=== PATIENT | male | born 1970 | race African-American/Black ===

== ENCOUNTER 2019-11-05 13:35 | Inpatient (IN) | payer OTHER ==
[2019-11-05 17:06] VITALS: BMI 27.1
--- NOTE | 2019-11-05 17:48 | HP ---
COWS - Scale Resting Pulse: 0= [place] 80 or Below Sweatin=Flushed/Facial Moisture Restless Observation: 1= Difficult to Sit Still Pupil Size: 1= Pupils >than Normal Bone or Joint Aches: 4=Acute Joint/Muscle Pain Runny Nose/ Eye Tearin= Runny Nose/Eyes GI Upset > 30mins: 3= Vomiting/Diarrhea (vomiting x 2, no diarrhea) Tremor Observation: 2= Slight Tremor Visible Yawning Observation: 1= 1-2x During Session Anxiety or Irritability: 2=Irritable/Anxious Goose Flesh Skin: 3=Piloerection COWS Score: 21 CIWA Score - Admission Criteria [facility]ASAS Guidelines: Admission for Medically Managed Detox: Requires at least one of the followin. CIWA greater than 12 2. Seizures within the past 24 hours 3. Delirium tremens within the past 24 hours 4. Hallucinations within the past 24 hours 5. Acute intervention needed for co occurring medical disorder 6. Acute intervention needed for co occurring psychiatric disorder 7. Severe withdrawal that cannot be handled at a lower level of care (continued vomiting, continued diarrhea, abnormal vital signs) requiring intravenous medication and/or fluids 8. Admitting History and Physical - Smoking History Smoking history: Current every day smoker Have you smoked in the past 12 months: Yes Aproximately how many cigarettes per day: 20 - Alcohol/Substance Use Hx Alcohol Use: No Admission [facility] Chief Complaint: Heroin withdrawal symptoms Allergies/Adverse Reactions: Allergies Allergy/AdvReac Type Severity Reaction Status Date / Time No Known Allergies Allergy Verified 11/05/19 16:57 History of Present Illness: 49 years old male with 33 years of heroin dependence is seeking admission to detox. Patient reports that his last detox was at [facility]. He denies any medical history, psych. history and suicidal ideation at this time. He denies blackouts and overdose. Data Detail Level: Printer-Friendly View Confidential Drug Utilization Report Search Terms: amrita pastrana, 1970 Search Date: 11/05/2019 05:47:18 PM The Drug Utilization Report below displays all of the controlled substance prescriptions, if any, that your patient has filled in the last twelve months. The information displayed on this report is compiled from pharmacy submissions to the Department, and accurately reflects the information as submitted by the pharmacies. There are no results for the search terms that you entered. 2017 [facility] Department of Health - [place] of Narcotic Enforcement 11/05/2019 17:47:18 . Exam Limitations: Other (active withdrawal) - Ebola screening Have you traveled outside of the country in the last 21 days: No Have you had contact with anyone from an Ebola affected area: No Do you have a fever: No - Review of Systems Constitutional: Chills, Malaise, Night Sweats, Changes in sleep EENT: reports: Nose Congestion Respiratory: reports: No Symptoms reported Cardiac: reports: No Symptoms Reported GI: reports: Nausea, Poor Appetite, Poor Fluid Intake, Vomiting, Abdominal cramping Musculoskeletal: reports: Back Pain, Joint Pain, Neck Pain Integumentary: reports: Dryness, Flushing Neuro: reports: Tremors Hematology: reports: No Symptoms Reported Psychiatric: reports: Anxious Other Systems: Reviewed and Negative Patient History - Patient Medical History Hx Anemia: No Hx Asthma: No Hx Chronic Obstructive Pulmonary Disease (COPD): No Hx Cancer: No Hx Cardiac Disorders: No Hx Congestive Heart Failure: No Hx Hypertension: No Hx Hypercholesterolemia: No Hx Pacemaker: No HX Cerebrovascular Accident: No Hx Seizures: No Hx Dementia: No Hx Diabetes: No Hx Gastrointestinal Disorders: No Hx Liver Disease: No Hx Genitourinary Disorders: No Hx Sexually Transmitted Disorders: No Hx Renal Disease (ESRD): No Hx Thyroid Disease: No Hx Human Immunodeficiency Virus (HIV): No (Negative 2017) Hx Hepatitis C: No Hx Depression: No Hx Suicide Attempt: No (Denies suicidal ideation at this time) Hx Schizophrenia: No - Patient Surgical History Past Surgical History: No Hx Neurologic Surgery: No Hx Cataract Extraction: No Hx Cardiac Surgery: No Hx Lung Surgery: No Hx Abdominal Surgery: No Hx Appendectomy: No Hx Cholecystectomy: No Hx Genitourinary Surgery: No Hx Orthopedic Surgery: No Anesthesia Reaction: No - PPD History Previous Implant?: Yes Documented Results: Negative w/o proof Implanted On Prior R Admission?: Yes Date: 04/14/12 Results: 0 mm PPD to be Administered?: Yes - Reproductive History Patient is a Female of Child Bearing Age (11 -55 yrs old): No (male) - Smoking Cessation Smoking history: Current every day smoker Have you smoked in the past 12 months: Yes Aproximately how many cigarettes per day: 20 Hx Chewing Tobacco Use: No Initiated information on smoking cessation: Yes 'Breaking Loose' booklet given: 11/05/19 - Substance & Tx. History Hx Alcohol Use: No Hx Substance Use: Yes Substance Use Type: Cocaine, Opiates Hx Substance Use Treatment: Yes ([facility]) - Substances abused Heroin Substance route: Injection Frequency: Daily Amount used: 15 bags Age of first use: 16 Date of last use: 11/04/19 Admission Physical Exam [facility] - Vital Signs Vital Signs: Vital Signs - 24 hr 11/05/19 17:02 Temperature 97.9 F Pulse Rate 76 Respiratory 20 Rate Blood Pressure 179/103 H - Physical General Appearance: Yes: Severe Distress, Tremorous, Irritable, Sweating, Anxious HEENTM: Yes: Rhinorrhea Respiratory: Yes: Lungs Clear, Normal Breath Sounds, No Respiratory Distress Neck: Yes: Within Normal Limits Breast: Yes: Breast Exam Deferred Cardiology: Yes: Regular Rhythm, Tachycardia, Other (elevated blood pressure) Abdominal: Yes: Normal Bowel Sounds, Decreased BS Genitourinary: Yes: Within Normal Limits Back: Yes: Normal Inspection Musculoskeletal: Yes: Back pain Extremities: Yes: Tremors Neurological: Yes: Within Normal Limits Integumentary: Yes: Warm Lymphatic: Yes: Within Normal Limits - Diagnostic (1) Opioid dependence with withdrawal Current Visit: Yes Status: Acute (2) Nicotine dependence Current Visit: Yes Status: Acute Qualifiers: Nicotine product type: cigarettes Substance use status: in withdrawal Qualified Code(s): F17.213 - Nicotine dependence, cigarettes, with withdrawal (3) Cocaine dependence Current Visit: Yes Status: Active Cleared for Admission [facility] - Detox or Rehab [facility] Level of Care: Medically Managed Detox Regimen/Protocol: Methadone Claeared for Rehab Admission: No Breathalyzer - Breathalyzer Breathalyzer: 0 Urine Drug Screen - Test Device Lot number: [id number] Expiration date: 05/07/21 - Control Is test valid?: Yes - Results Drug screen NEGATIVE: No Urine drug screen results: JENNIFER-Cocaine, FEN-Fentanyl, MOP-Opiates Inpatient Rehab Admission - Rehab Decision to Admit Inpatient rehab admission?: No
[2019-11-05] MEDS ORDERED: MENTHOL/PHENOL 1 EACH UD MM PRN (17:56)
[2019-11-05] MEDS ORDERED: MAG HYDROX/AL HYDROX/SIMETH 30 ML UNIT-DOSE CUP PO PRN (17:56)
[2019-11-05] MEDS ORDERED: MAGNESIUM HYDROX 2400MG/30ML ORAL SUSPENSION 30 ML CUP PO PRN (17:56)
[2019-11-05] MEDS ORDERED: MAGNESIUM CITRATE 300 ML BOTTLE PO PRN (17:56)
[2019-11-05] MEDS ORDERED: METHOCARBAMOL 500 MG TABLET PO PRN (17:56)
[2019-11-05] MEDS ORDERED: hydrOXYzine PAMOATE 25 MG CAPSULE (FP) PO PRN (17:56)
[2019-11-05] MEDS ORDERED: BISMUTH SUBSALICYLATE 524 MG/30 ML UD PO PRN (17:56)
[2019-11-05] MEDS ORDERED: cloNIDine HCL 0.1 MG TABLET PO PRN (17:56)
[2019-11-05] MEDS ORDERED: ACETAMINOPHEN 325 MG TABLET (FP) PO PRN ×2 (17:56)
[2019-11-05] MEDS ORDERED: NICOTINE POLACRILEX 2 MG GUM BUC PRN (17:56)
[2019-11-05] MEDS ORDERED: METHADONE HCL 10 MG TABLET (FOR DETOX USE ONLY) PO ONE (19:00)
[2019-11-05] MEDS: THIAMINE HCL 100 MG TABLET (FP) PO SCH (22:58)
[2019-11-06] MEDS ORDERED: METHADONE HCL 10 MG TABLET (FOR DETOX USE ONLY) ONE (08:44)
[2019-11-06] MEDS ORDERED: METHADONE HCL 5 MG TABLET (FOR DETOX USE ONLY) ONE (08:44)
[2019-11-06] MEDS: NICOTINE 21 MG/24 HOURS TOPICAL PATCH TD SCH (09:35)
[2019-11-06] MEDS: PRENATAL VITAMINS W/ FOLIC ACID TABLET (FP) PO SCH (09:35)
[2019-11-06] MEDS: IBUPROFEN 400 MG TABLET (FP) PO PRN (09:37)
[2019-11-06] MEDS ORDERED: METHADONE (DETOX) 20 MG, METHADONE (DETOX) 5 MG PO ONE (10:00)
[2019-11-06 10:10] LABS: HEMATOCRIT 36.8 % (35.4-49); HEMOGLOBIN 11.7 GM/dL (11.7-16.9); MCH 26.6 pg (25.7-33.7); MCHC 31.9 g/dl (32.0-35.9); MEAN CELL VOLUME 83.6 fl (80-96); MEAN PLT VOLUME 10.5 fl (7.5-11.1); PLATELET COUNT 223 K/MM3 (134-434); RDW 13.4 % (11.9-15.9); WHITE BLOOD COUNT 14.5 K/mm3 (4.0-10.0)
[2019-11-06 10:25] LABS: ALBUMIN 3.6 g/dl (3.4-5.0); BILIRUBIN,TOTAL 0.6 mg/dL (0.2-1); BLOOD UREA NITROGEN 13.5 mg/dL (7-18); CALCIUM 9.1 mg/dL (8.5-10.1); CREATININE 0.8 mg/dL (0.55-1.3); POTASSIUM 3.9 mmol/L (3.5-5.1); TOT PROT 7.1 g/dl (6.4-8.2)
--- NOTE | 2019-11-06 12:37 | PN ---
BHS COWS - Scale Resting Pulse: 0= [place] 80 or Below Sweatin= Chills/Flushing Restless Observation: 1= Difficult to Sit Still Pupil Size: 0= Normal to Room Light Bone or Joint Aches: 2= Severe Diffuse Aches Runny Nose/ Eye Tearin= Runny Nose/Eyes GI Upset > 30mins: 1= Stomach Cramp Tremor Observation of Outstretched Hands: 2= Slight Tremor Visible Yawning Observation: 2= >3x During Session Anxiety or Irritability: 2=Irritable/Anxious Goose Flesh Skin: 0=Smooth Skin COWS Score: 13 BHS Progress Note (SOAP) Subjective: restless agitation sweats shakes body aches interrupted sleep Objective: 11/06/19 12:36 Vital Signs Temperature 97.8 F 11/06/19 09:39 Pulse Rate 77 11/06/19 09:39 Respiratory Rate 18 11/06/19 09:39 Blood Pressure 139/70 11/06/19 09:39 O2 Sat by Pulse Oximetry (%) Laboratory Tests 11/06/19 11/06/19 11/06/19 08:00 08:00 08:00 WBC 14.5 H RBC 4.40 Hgb 11.7 Hct 36.8 MCV 83.6 MCH 26.6 MCHC 31.9 L RDW 13.4 Plt Count 223 MPV 10.5 Sodium 138 Potassium 3.9 Chloride 106 Carbon Dioxide 25 Anion Gap 7 L BUN 13.5 Creatinine 0.8 Est GFR (CKD-EPI)AfAm 122.43 Est GFR (CKD-EPI)NonAf 105.63 Random Glucose 106 Calcium 9.1 Total Bilirubin 0.6 AST 29 ALT 65 H Alkaline Phosphatase 62 Total Protein 7.1 Albumin 3.6 RPR Titer Nonreactive aaox3 ambulating no acute distress Assessment: 11/06/19 12:36 withdrawals Plan: continue detox increase fluid
--- NOTE | 2019-11-06 12:43 | EKG ---
Test Reason : Blood Pressure : / mmHG Vent. Rate : 051 BPM Atrial Rate : 051 BPM P-R Int : 168 ms QRS Dur : 092 ms QT Int : 430 ms P-R-T Axes : 052 075 065 degrees QTc Int : 396 ms SINUS BRADYCARDIA MINIMAL VOLTAGE CRITERIA FOR LVH, MAY BE NORMAL VARIANT BORDERLINE ECG NO PREVIOUS ECGS AVAILABLE Confirmed by ELEAZAR FLORIAN MD ([id number]) on 11/06/2019 12:42:52 PM Referred By: JANIA Confirmed By:ELEAZAR FLORIAN MD
[2019-11-06] MEDS: THIAMINE HCL 100 MG TABLET (FP) PO SCH (22:32)
[2019-11-07] MEDS ORDERED: METHADONE HCL 10 MG TABLET (FOR DETOX USE ONLY) PO ONE (10:00)
[2019-11-07] MEDS: IBUPROFEN 400 MG TABLET (FP) PO PRN ×2 (10:20→17:32)
[2019-11-07] MEDS: PRENATAL VITAMINS W/ FOLIC ACID TABLET (FP) PO SCH (10:20)
[2019-11-07] MEDS: NICOTINE 21 MG/24 HOURS TOPICAL PATCH TD SCH (10:46)
--- NOTE | 2019-11-07 12:27 | PN ---
BHS COWS - Scale Resting Pulse: 0= [place] 80 or Below Sweatin= Chills/Flushing Restless Observation: 1= Difficult to Sit Still Pupil Size: 0= Normal to Room Light Bone or Joint Aches: 1= Mild Discomfort Runny Nose/ Eye Tearin= None GI Upset > 30mins: 0= None Tremor Observation of Outstretched Hands: 1= Tremor [place], Not Seen Yawning Observation: 2= >3x During Session Anxiety or Irritability: 2=Irritable/Anxious Goose Flesh Skin: 0=Smooth Skin COWS Score: 8 BHS Progress Note (SOAP) Subjective: restless sweats interrupted sleep agitation Objective: 11/07/19 12:27 Vital Signs Temperature 98.2 F 11/07/19 09:58 Pulse Rate 76 11/07/19 09:58 Respiratory Rate 17 11/07/19 09:58 Blood Pressure 154/97 11/07/19 09:58 O2 Sat by Pulse Oximetry (%) Laboratory Tests 11/06/19 11/06/19 11/06/19 08:00 08:00 08:00 WBC 14.5 H RBC 4.40 Hgb 11.7 Hct 36.8 MCV 83.6 MCH 26.6 MCHC 31.9 L RDW 13.4 Plt Count 223 MPV 10.5 Sodium 138 Potassium 3.9 Chloride 106 Carbon Dioxide 25 Anion Gap 7 L BUN 13.5 Creatinine 0.8 Est GFR (CKD-EPI)AfAm 122.43 Est GFR (CKD-EPI)NonAf 105.63 Random Glucose 106 Calcium 9.1 Total Bilirubin 0.6 AST 29 ALT 65 H Alkaline Phosphatase 62 Total Protein 7.1 Albumin 3.6 RPR Titer Nonreactive aaox3 ambulating no acute distress Assessment: 11/07/19 12:27 withdrawals Plan: continue detox increase fluids
[2019-11-07] MEDS: THIAMINE HCL 100 MG TABLET (FP) PO SCH (21:39)
[2019-11-07] MEDS: MELATONIN 5 MG TABLETS PO PRN (21:39)
[2019-11-08] MEDS: IBUPROFEN 400 MG TABLET (FP) PO PRN ×2 (08:45→20:31)
[2019-11-08] MEDS ORDERED: METHADONE HCL 5 MG TABLET (FOR DETOX USE ONLY) ONE (09:22)
[2019-11-08] MEDS ORDERED: METHADONE HCL 10 MG TABLET (FOR DETOX USE ONLY) ONE (09:23)
[2019-11-08] MEDS ORDERED: METHADONE (DETOX) 10 MG, METHADONE (DETOX) 5 MG PO ONE (10:00)
[2019-11-08] MEDS: PRENATAL VITAMINS W/ FOLIC ACID TABLET (FP) PO SCH (10:37)
[2019-11-08] MEDS: NICOTINE 21 MG/24 HOURS TOPICAL PATCH TD SCH (10:37)
[2019-11-08] MEDS ORDERED: ONDANSETRON *ODT* 4 MG TABLET SL PRN (11:00)
--- NOTE | 2019-11-08 17:18 | PN ---
BHS COWS - Scale Resting Pulse: 0= [place] 80 or Below Sweatin= Chills/Flushing Restless Observation: 3= Extraneous Movement Pupil Size: 0= Normal to Room Light Bone or Joint Aches: 1= Mild Discomfort Runny Nose/ Eye Tearin= None GI Upset > 30mins: 2= Nausea/Diarrhea Tremor Observation of Outstretched Hands: 1= Tremor [place], Not Seen Yawning Observation: 1= 1-2x During Session Anxiety or Irritability: 1=Feels Anxious/Irritable Goose Flesh Skin: 0=Smooth Skin COWS Score: 10 BHS Progress Note (SOAP) Subjective: Nausea, anxiety, fatigue, intermittent sleep. Objective: 11/08/19 17:17 Vital Signs - 24 hr 11/07/19 11/07/19 11/08/19 17:48 21:45 00:30 Temperature 98.2 F 98.2 F Pulse Rate 75 62 Respiratory 19 19 18 Rate Blood Pressure 145/92 134/73 11/08/19 11/08/19 11/08/19 03:30 07:23 09:29 Temperature 100.4 F H 99.1 F Pulse Rate 70 69 Respiratory 18 18 14 Rate Blood Pressure 153/86 122/76 11/08/19 13:41 Temperature 97.9 F Pulse Rate 70 Respiratory 16 Rate Blood Pressure 141/79 Laboratory Tests 11/06/19 11/06/19 11/06/19 08:00 08:00 08:00 WBC 14.5 H RBC 4.40 Hgb 11.7 Hct 36.8 MCV 83.6 MCH 26.6 MCHC 31.9 L RDW 13.4 Plt Count 223 MPV 10.5 Sodium 138 Potassium 3.9 Chloride 106 Carbon Dioxide 25 Anion Gap 7 L BUN 13.5 Creatinine 0.8 Est GFR (CKD-EPI)AfAm 122.43 Est GFR (CKD-EPI)NonAf 105.63 Random Glucose 106 Calcium 9.1 Total Bilirubin 0.6 AST 29 ALT 65 H Alkaline Phosphatase 62 Total Protein 7.1 Albumin 3.6 RPR Titer Nonreactive Alert o x 3 nad oob ambulating with steady gait Assessment: 11/08/19 17:17 Sunil w/s Plan: cont detox maintain safety increase po fluids Zofran prn for n/v
[2019-11-08] MEDS: MELATONIN 5 MG TABLETS PO PRN (21:05)
[2019-11-08] MEDS: THIAMINE HCL 100 MG TABLET (FP) PO SCH (21:05)
[2019-11-09 09:56] VITALS: BP 126/87; PULSE 80; TEMP 98.6
[2019-11-09] MEDS ORDERED: METHADONE HCL 10 MG TABLET (FOR DETOX USE ONLY) PO ONE (10:00)
[2019-11-09] MEDS: PRENATAL VITAMINS W/ FOLIC ACID TABLET (FP) PO SCH (10:36)
[2019-11-09] MEDS: NICOTINE 21 MG/24 HOURS TOPICAL PATCH TD SCH (10:36)
--- NOTE | 2019-11-09 16:32 | DS ---
[facility] Rehab Discharge Summary - [facility] Rehab Discharge Summary Admission Date: 11/05/19 Discharge Date: 11/09/19 - History Present History: Cocaine dependence, Opioid dependence - Discharge Physical Exam Vital Signs: Vital Signs Temperature 98.6 F 11/09/19 09:55 Pulse Rate 80 11/09/19 09:55 Respiratory Rate 16 11/09/19 09:55 Blood Pressure 126/87 11/09/19 09:55 O2 Sat by Pulse Oximetry (%) Vital Signs Temperature 98.6 F 11/09/19 09:55 Pulse Rate 80 11/09/19 09:55 Respiratory Rate 16 11/09/19 09:55 Blood Pressure 126/87 11/09/19 09:55 O2 Sat by Pulse Oximetry (%) Laboratory Tests 11/06/19 11/06/19 11/06/19 08:00 08:00 08:00 WBC 14.5 H RBC 4.40 Hgb 11.7 Hct 36.8 MCV 83.6 MCH 26.6 MCHC 31.9 L RDW 13.4 Plt Count 223 MPV 10.5 Sodium 138 Potassium 3.9 Chloride 106 Carbon Dioxide 25 Anion Gap 7 L BUN 13.5 Creatinine 0.8 Est GFR (CKD-EPI)AfAm 122.43 Est GFR (CKD-EPI)NonAf 105.63 Random Glucose 106 Calcium 9.1 Total Bilirubin 0.6 AST 29 ALT 65 H Alkaline Phosphatase 62 Total Protein 7.1 Albumin 3.6 RPR Titer Nonreactive ROS: mild sweats, anxiety. States " I feel tired" PE alert and oriented x 3 skin warm and dry car s1s2 resp cta bl ext full rom amb ad lorrie a/p: Opiod withdrawal sx elevated CBC Continue detox repeat CBC today for d/c in am - Treatment Hospital Course: Patient tolerating detox regimen. Noted with elevated WBC. CBC due to be repeated today as he is for d/c in am. Patient later informed RN that he wanted to sign out AMA. Patient encouraged to stay in treatment and explained risk factors of relapse and/or but refused. Patient also explained importance of repeat labs as previous results show elevated WBC. Patient continued with AMA process despite interventions. Although he was scheduled for d/c in am, I do not recommend discharge due to abnormal labs. Patient to sign out AMA. - Medication Discharge Medications: Ambulatory Orders NK [No Known Home Medication] 11/05/19 - Medication-Assisted Treatment (MAT) Medication-Assisted Treatment (MAT): No - Discharge Instructions Diet, activity, other medical instructions: Diet: reg Activity: as tolerated Other medical instructions: follow up with PCP within 24 hours of discharge and go to ER of symptoms of fever, cough, cold symptoms and sob/cp. - Follow-up Referral Minutes to complete discharge: 30 - AMA Did Patient Leave Against Medical Advice: Yes
[2019-11-10] MEDS ORDERED: METHADONE HCL 5 MG TABLET (FOR DETOX USE ONLY) PO ONE (06:00)
== END 2019-11-09 12:50 | disposition left against medical advice (07) | DRG 770 ==
LOC: YASAS 13:35 → Y6N 18:47
PROVIDERS: ADMIT Allergy & Immunology; ATTEND Allergy & Immunology
PROC: HZ42ZZZ Group Counseling for Substance Abuse Treatment, Cognitive-Behavioral (ICD-10-PCS; principal; 2019-11-05)
DX: F11.20 Opioid dependence, uncomplicated (principal); F14.20 Cocaine dependence, uncomplicated; F17.213 Nicotine dependence, cigarettes, with withdrawal; R00.0 Tachycardia, unspecified
CPT/HCPCS: 36415; 80053; 85027; 86593; 93005; 93010; J0735